=== PATIENT | female | born 1985 | race Caucasian/White ===

== ENCOUNTER 2016-09-05 17:52 | Emergency (ER) | payer MEDICAID ==
[~2016-09-05] VITALS: Ht 160 cm; Wt 67.0 kg
[~2016-09-05 17:52] MED LIST: HYDR-906 PO; NAPR-260 PO; NO CURRENT MEDS
[2016-09-05 17:59] VITALS: Ht 160 cm; Wt 67.0 kg
[2016-09-05] MEDS ORDERED: morphine 4 MG/ML VIAL IV STA (20:38)
[2016-09-05] MEDS ORDERED: ONDANSETRON 4 MG INJ IV STA (20:38)
[2016-09-05] MEDS ORDERED: SOD CHLORIDE 0.9% 1,000 ML IV STA (20:38)
[2016-09-05 22:24] LABS: BASOPHILS % 0.4 % (0.0-2.0); EOSINOPHILS % 0.4 % (0.0-7.0); HEMATOCRIT 35.9 % (37.0-47.0); HEMOGLOBIN 12.2 g/dl (12.0-16.0); LYMPHOCYTES # 1.4 10^3/ul (0.8-2.9); LYMPHOCYTES % 29.4 % (15.0-51.0); MEAN CORPUSCULAR HEMOGLOBIN 28.3 pg (29.0-33.0); MEAN CORPUSCULAR HGB CONC 34.1 g/dl (32.0-37.0); MEAN CORPUSCULAR VOLUME 82.9 fl (82.0-101.0); MEAN PLATELET VOLUME 8.8 fl (7.4-10.4); MONOCYTE # 0.5 10^3/ul (0.3-0.9); MONOCYTES % 10.2 % (0.0-11.0); NEUTROPHIL # 2.9 10^3/ul (1.6-7.5); NEUTROPHILS % 59.6 % (39.0-77.0); PLATELET COUNT 205 10^3/UL (140-440); RED BLOOD COUNT 4.33 10^6/ul (4.20-5.40); RED CELL DISTRIBUTION WIDTH 13.5 % (11.5-14.5); UNCORRECTED WBC 4.9 10^3/ul (4.8-10.8); WHITE BLOOD COUNT 4.9 10^3/ul (4.8-10.8)
[2016-09-05 22:27] LABS: CONDITION 1
[2016-09-05 22:28] LABS: ALBUMIN 4.1 g/dl (3.3-4.9)
[2016-09-05 22:29] LABS: POTASSIUM 3.9 mmol/L (3.5-5.1)
[2016-09-05 22:31] LABS: URINE BLOOD (Dip) POC Negative (NEGATIVE)
[2016-09-05 22:31] LABS: ALBUMIN/GLOBULIN RATIO 1.17; BILIRUBIN,INDIRECT 0.9 mg/dl (0-1.1); BILIRUBIN,TOTAL 0.9 mg/dl (0.2-1.3); CREATININE 0.54 mg/dl (0.44-1.00); TOTAL PROTEIN 7.6 g/dl (6.1-8.1)
--- NOTE | 2016-09-05 22:59 | RADRPT ---
PROCEDURE: CT abdomen and pelvis without contrast. CLINICAL INDICATION: Abdominal pain, right side TECHNIQUE: CT scan of the abdomen and pelvis without contrast was performed. Sagittal and coronal reformatted images were obtained from the axial source images. CTDI = 9.68 mGy; DLP = 550.45 mGy-cm COMPARISON: Renal ultrasound 07/10/2016 FINDINGS: Visualized lower thorax: The lung bases are clear. There is no evidence for pleural effusion. Liver, gallbladder, pancreas and spleen: The liver is normal and size, contour and attenuation. Th ere is no evidence for a liver mass or ductal dilatation. The gallbladder is unremarkable. No comm on bile duct abnormality is demonstrated. The pancreas is unremarkable. The spleen is enlarged est imated at 14 cm in greatest dimension but is normal in contour without evidence of masses. Adrenal glands and genitourinary system: The adrenal glands are normal bilaterally. Tiny 1 mm inter polar right renal calculus is noted. There is trace right hydronephrosis. The left kidney is rodríguez l without calculus or hydronephrosis. Trace proximal right hydroureter is present the mid and dista l ureter are unremarkable there is no right ureteral calculus. The left ureter is normal. No urina ry bladder abnormality is demonstrated. The uterus and adnexa show no abnormalities. There is no f ree fluid in the cul-de-sac. Gastrointestinal system: The stomach is normal in caliber with no abnormality of significance. The small bowel is normal in caliber with no ileus, obstruction or wall thickening. The appendix and s urrounding fat are within the limits of normal. The colon shows no evidence for wall thickening or acute abnormality. There is no evidence for colitis or diverticulitis. Peritoneum, retroperitoneum, lymph nodes and vessels: The abdominal aorta is normal in caliber. The re is no evidence for atherosclerotic calcification. The inferior vena cava is unremarkable. There is no evidence for adenopathy or mass. There is no ascites. Osseous structures and musculoskeletal findings: There is no fracture, lytic or blastic lesion. No muscular abnormality or soft tissue pathology is present. RPTAT:HJJR IMPRESSION: 1. Minimal right hydroureteronephrosis without ureteral calculus, findings possibly related to rece nt stone passage. 2. Tiny 1 mm nonobstructing right interpolar renal calculus. No other urinary tract calculi are pr esent. 3. Normal appendix and gastrointestinal system. 4. Mild splenomegaly. Prudencio Riojas, Physician Date Time Electronically viewed and signed by Prudencio Riojas Physician on 09/05/2016 22:58 JR/
--- NOTE | 2016-09-05 23:10 | ERD ---
ER Documentation Chief Complaint Date/Time DATE: 09/05/16 TIME: 23:04 Chief Complaint RUQ ABDOMINAL PAIN X 2 DAYS WITH N/V HPI The patient comes to the ED secondary to right flank pain that radiates down her side and goes to the front lower quadrant for 4 days. She states she had a kidney stone previously and these symptoms feel like the same symptoms as when she had a kidney stone. She rates her pain as 8/10, it is intermittent. She took a Combs yesterday for pain with no relief. She denies fever, chills, nausea , vomiting, diarrhea, hematuria, headache, or any other symptoms or concerns at this time. ROS All systems reviewed and are negative except as per history of present illness. Medications Home Meds Active Scripts Ciprofloxacin Hcl* (Ciprofloxacin Hcl*) 500 Mg Tablet, 500 MG PO BID for 3 Days , TAB Prov:CHRISTAL MARTIN, OLIVER 09/06/16 Hydrocodone/Acetaminophen (Combs 5-325 Tablet) 1 Each Tablet, 1 TAB PO Q6H Y for PAIN, #7 TAB Prov:CHRISTAL MARTIN NP 09/06/16 Ibuprofen* (Motrin*) 600 Mg Tab, 600 MG PO Q6H Y for PAIN AND OR ELEVATED TEMP, #30 TAB Prov:CHRISTAL MARTIN NP 09/06/16 Naproxen* (Naprosyn*) 500 Mg Tablet, 500 MG PO BID Y for PAIN AND/OR INFLAMMATION, #30 TAB Prov:TOMER CANALES PA-C 07/10/16 Hydrocodone/Acetaminophen (Combs 5-325 Tablet) 1 Each Tablet, 1-2 TAB PO Q6H Y for PAIN, #30 TAB Prov:TOMER CANALES PA-C 07/10/16 Reported Medications [No Current Meds] No Conflict Check 08/14/09 Allergies Allergies: Coded Allergies: No Known Allergy (Verified Allergy, Mild, 09/22/09) PMhx/Soc History of Surgery: Yes (removal of kidney stone) Anesthesia Reaction: No Hx Neurological Disorder: No Hx Respiratory Disorders: No Hx Cardiac Disorders: No Hx Psychiatric Problems: No Hx Miscellaneous Medical Probl: Yes (Kidney stone) Hx Alcohol Use: No Hx Substance Use: No Hx Tobacco Use: No Physical Exam Vitals Vital Signs Date Time Temp Pulse Resp B/P Pulse Ox O2 Delivery O2 Flow Rate FiO2 09/06/16 00:55 98.2 77 18 136/81 100 Room Air 09/05/16 17:59 98.2 76 18 125/81 99 Physical Exam INITIAL VITAL SIGNS: Reviewed by me GENERAL: Alert. Well developed and well nourished. No respiratory distress HEAD: Head is normocephalic. Atraumatic. EYES: EOMI. PERRL. No scleral icterus. No conjunctival injection. ENT: External ears, nose, and mouth normal. Nasal passages patent. Moist mucous membranes. NECK: Supple. Full range of motion. Trachea midline. RESPIRATORY: No tachypnea. Clear to auscultation bilaterally. No wheezing, rales , or rhonchi. CV: Regular rate and rhythm. No murmurs, rubs, or gallops ABDOMEN: Soft, non-distended, non-tender. No guarding. No rebound. No McBurney' s point tenderness. Negative Reyes's sign. Bowel sounds normal in all quadrants. BACK: + CVA tenderness right side. Full ROM. EXTREMITIES: No obvious deformity. No clubbing or cyanosis. No edema. SKIN: Warm and dry. No diaphoresis. No obvious rashes or lesions. NEUROLOGIC: Alert and oriented x 3. Appropriate. Face is symmetric. Speech is normal. Moves all extremities equally. Result Diagram: 09/05/16212509/05/162125 Results 24 hrs Laboratory Tests Test 09/05/16 21:26 09/05/16 22:32 09/05/16 22:40 Alanine Aminotransferase (ALT/SGPT) 282IU/L Albumin 4.1g/dl Albumin/Globulin Ratio 1.17 Alkaline Phosphatase 96IU/L Anion Gap 16 Aspartate Amino Transf (AST/SGOT) 137IU/L Basophils # 0.010^3/ul Basophils % 0.4% Blood Morphology Comment Blood Urea Nitrogen 12mg/dl Calcium Level 9.0mg/dl Carbon Dioxide Level 27mmol/L Chloride Level 103mmol/L Creatinine 0.54mg/dl Direct Bilirubin 0.00mg/dl Eosinophils # 0.010^3/ul Eosinophils % 0.4% Globulin 3.50g/dl Glucose Level 104mg/dl Hematocrit 35.9% Hemoglobin 12.2g/dl Indirect Bilirubin 0.9mg/dl Lipase 80U/L Lymphocytes # 1.410^3/ul Lymphocytes % 29.4% Mean Corpuscular Hemoglobin 28.3pg Mean Corpuscular Hemoglobin Concent 34.1g/dl Mean Corpuscular Volume 82.9fl Mean Platelet Volume 8.8fl Monocytes # 0.510^3/ul Monocytes % 10.2% Neutrophils # 2.910^3/ul Neutrophils % 59.6% Nucleated Red Blood Cells # 0.010^3/ul Nucleated Red Blood Cells % 0.0/100WBC Platelet Count 78274^3/UL Potassium Level 3.9mmol/L Red Blood Count 4.3310^6/ul Red Cell Distribution Width 13.5% Sodium Level 142mmol/L Total Bilirubin 0.9mg/dl Total Protein 7.6g/dl White Blood Count 4.910^3/ul Bedside Urine Blood Negative Bedside Urine Glucose (UA) Negative Bedside Urine Ketones (LAB) Negative Bedside Urine Leukocyte Esterase (L Negative Bedside Urine Nitrite (LAB) Negative Bedside Urine Protein (LAB) Negative Bedside Urine pH (LAB) 6.5 Urine Bilirubin NEGATIVE Urine Clarity CLEAR Urine Color LT. YELLOW Urine Glucose NEGATIVE% Urine Hemoglobin NEGATIVE Urine Ketones NEGATIVE Urine Leukocyte Esterase NEGATIVE Urine Nitrite NEGATIVE Urine Specific [place] 1.015 Urine Total Protein NEGATIVE Urine Urobilinogen 1.0 E.U./dL Urine pH 7.0 Current Medications Medications (Trade) Dose Ordered Sig/Danuta Route PRN Reason Start Time Stop Time Status Last Admin Dose Admin Sodium Chloride (NS) 1,000 ml @ 1,000 mls/hr Q1H STAT IV 09/05/16 20:38 09/05/16 21:37 DC 09/05/16 22:12 Morphine Sulfate (morphine) 4 mg ONCE STAT IV 09/05/16 20:38 09/05/16 20:41 DC 09/05/16 22:11 Ondansetron HCl (Zofran Inj) 4 mg ONCE STAT IV 09/05/16 20:38 09/05/16 20:41 DC 09/05/16 22:11 [place] [id number] Radiology Main Line: [phone] DIAGNOSTIC IMAGING REPORT Patient: CONCETTA ELIZONDO : 1985 Age: 31 Sex: F MR #: [id number] DOS: 09/05/162037 Ordering MD: CHRISTAL MARTIN NP Location: [facility] Room/Bed: PROCEDURE: CT abdomen and pelvis without contrast. CLINICAL INDICATION: Abdominal pain, right side TECHNIQUE: CT scan of the abdomen and pelvis without contrast was performed. Sagittal and coronal reformatted images were obtained from the axial source images. CTDI = 9.68 mGy; DLP = 550.45 mGy-cm COMPARISON: Renal ultrasound 07/10/2016 FINDINGS: Visualized lower thorax: The lung bases are clear. There is no evidence for pleural effusion. Liver, gallbladder, pancreas and spleen: The liver is normal and size, contour and attenuation. There is no evidence for a liver mass or ductal dilatation. The gallbladder is unremarkable. No common bile duct abnormality is demonstrated. The pancreas is unremarkable. The spleen is enlarged estimated at 14 cm in greatest dimension but is normal in contour without evidence of masses. Adrenal glands and genitourinary system: The adrenal glands are normal bilaterally. Tiny 1 mm interpolar right renal calculus is noted. There is trace right hydronephrosis. The left kidney is normal without calculus or hydronephrosis. Trace proximal right hydroureter is present the mid and distal ureter are unremarkable there is no right ureteral calculus. The left ureter is normal. No urinary bladder abnormality is demonstrated. The uterus and adnexa show no abnormalities. There is no free fluid in the cul-de-sac. Gastrointestinal system: The stomach is normal in caliber with no abnormality of significance. The small bowel is normal in caliber with no ileus, obstruction or wall thickening. The appendix and surrounding fat are within the limits of normal. The colon shows no evidence for wall thickening or acute abnormality. There is no evidence for colitis or diverticulitis. Peritoneum, retroperitoneum, lymph nodes and vessels: The abdominal aorta is normal in caliber. There is no evidence for atherosclerotic calcification. The inferior vena cava is unremarkable. There is no evidence for adenopathy or mass. There is no ascites. Osseous structures and musculoskeletal findings: There is no fracture, lytic or blastic lesion. No muscular abnormality or soft tissue pathology is present. RPTAT:HJJR IMPRESSION: 1. Minimal right hydroureteronephrosis without ureteral calculus, findings possibly related to recent stone passage. 2. Tiny 1 mm nonobstructing right interpolar renal calculus. No other urinary tract calculi are present. 3. Normal appendix and gastrointestinal system. 4. Mild splenomegaly. Physician Bisi Date Time Electronically viewed and signed by Physician Bisi on 09/05/2016 22:58 JR/ CC: CHRISTAL MARTIN, OLIVER Procedures/MDM Nursing Notes Reviewed Previous Medical Records requested via [employer]. EMERGENCY DEPARTMENT COURSE / MEDICAL DECISION MAKING: The patient comes to the ED secondary to right flank pain that radiates down her side and goes to the front lower quadrant for 4 days. Differential diagnosis upon initial evaluation includes but is not limited to: Pyelonephritis, cholecystitis, pancreatitis, nephrolithiasis, infected stone, urinary tract infection, and others. The patient was treated with morphine and Zofran. 1 L normal saline IV. She had good pain relief. Her repeat physical exam was benign. CBC: no e/o of systemic infection or severe anemia CMP: no e/o severe acidosis, alkalosis, renal failure, diabetic ketoacidosis, liver disease Lipase: no e/o pancreatitis Urine: no e/o acute infection or hematuria Otherwise within normal limits, unremarkable, or as documented above. CT abdomen and pelvis per radiology report: IMPRESSION: 1. Minimal right hydroureteronephrosis without ureteral calculus, findings possibly related to recent stone passage. 2. Tiny 1 mm nonobstructing right interpolar renal calculus. No other urinary tract calculi are present. 3. Normal appendix and gastrointestinal system. 4. Mild splenomegaly. Final impression: Kidney stone The case was discussed with supervising physician Dr. Mejias. It was thought that the patient had just passed a kidney stone and was feeling the residual pain. It was agreed that she is an appropriate candidate for outpatient management and follow-up at this time. Per Dr. Nick, the patient will be prescribed cipro for infection prophylaxis. She is well-appearing, in no acute distress, with a benign physical exam, benign lab findings, and benign CT scan findings. Given this, I have low suspicion of this time for urinary tract infection, pyelonephritis, sepsis, pancreatitis. Based on patient's history of present illness and physical examination the decision was made to discharge. The patient was re-evaluated after ED treatment and stabilizing measures, and symptoms have improved. There is no evidence of life threatening injuries or illnesses at this time. On re-examination, patient resting in no distress, stable vital signs, reports feeling better and safe for discharge with outpatient follow up with PMD in 1-2 days. Patient given return precautions. Prescriptions Combs Cipro Ibuprofen Departure Diagnosis: Primary Impression: Kidney stone Condition: Stable CHRISTAL MARTIN NP Sep 05, 2016 23:10
[2016-09-05 23:35] LABS: ADD UMIC NO; URINE BILIRUBIN (Dip) NEGATIVE (NEGATIVE); URINE BLOOD (Dip) NEGATIVE (NEGATIVE); URINE COLOR LT. YELLOW (YELLOW); URINE GLUCOSE (Dip) NEGATIVE (NEGATIVE); URINE KETONES (Dip) NEGATIVE (NEGATIVE); URINE LEUKOCYTE ESTERASE (Dip) NEGATIVE (NEGATIVE); URINE NITRITE (Dip) NEGATIVE (NEGATIVE); URINE TOTAL PROTEIN (Dip) NEGATIVE (NEGATIVE); URINE UROBILINOGEN (Dip) 1.0 E.U./dL (0.1-1.0)
[2016-09-06] MEDS ORDERED: HYDR-906 PO (00:02)
[2016-09-06] MEDS ORDERED: IBUP-1542 PO (00:02)
[2016-09-06] MEDS ORDERED: CIPR500T4 PO (00:04)
[2016-09-06 00:55] VITALS: BP 136/81; PULSE 77; RESP 18; TEMP 98.2
== END 2016-09-06 00:55 | disposition home or self-care (01) ==
LOC: FTE 17:52
DX: N20.0 Calculus of kidney (principal)
CPT/HCPCS: 74176; 80053; 81003; 83690; 85025; J2270; J2405; J7030; 36415; 96374; 96375

== ENCOUNTER 2017-11-03 16:59 | Emergency (ER) | END 2017-11-03 22:02 | disposition left against medical advice (07) ==